=== PATIENT | male | born 1985 | race Two or more races ===

== ENCOUNTER 2017-03-02 20:58 | Inpatient (IN) | payer OTHER ==
[~2017-03-02] VITALS: Ht 180.3 cm; Wt 70.1 kg
[2017-03-02 22:55] VITALS: BP 126/79; PULSE 60; RESP 16; TEMP 97.3; O2SAT 97
[2017-03-02] MEDS ORDERED: LORazepam 2 MG/ML VIAL IM PRN (23:15)
[2017-03-02] MEDS ORDERED: MAGNESIUM HYDROXIDE SUSP 30 ML CUP PO PRN (23:15)
[2017-03-02] MEDS ORDERED: ACETAMINOPHEN 325 MG TAB PO PRN (23:15)
[2017-03-02] MEDS ORDERED: ALUMINUM/MAGNESIUM/SIMETH 30 ML CUP PO PRN (23:15)
[2017-03-02] MEDS: LORazepam 1 MG TAB PO PRN (23:54)
[2017-03-03 05:29] VITALS: BP 98/60; PULSE 74; RESP 16; TEMP 97.8; O2SAT 97
[2017-03-03] MEDS: LORazepam 1 MG TAB PO PRN ×2 (08:45→18:04)
[2017-03-03] MEDS: NICOTINE 21 MG/24 HR PATCH T-DERMAL SCH (08:48)
--- NOTE | 2017-03-03 09:34 | HHI.HP ---
Provisional Diagnosis Admission Date Mar 02, 2017 at 20:58 [place] I. 1. Bipolar disorder, currently depressed, moderate 2. History of methamphetamine abuse [place] II. Deferred [place] V. GAF is 40 presently Certification of Person's Competence To Provide Express and Informed Consent I have personally examined Albert Moses , a person being served at [facility] on, Mar 03, 2017 09:34. Express and informed consent means consent voluntarily given in writing, by a competent person, after sufficient explanation and disclosure of the subject matter involved to enable the person to make a knowing and willful decision without any element of force, fraud, deceit, duress, or other form of constraint or coercion. This person is 18 years of age or older, is not now known to be incompetent to consent to treatment with a guardian advocate, and does not have a health care surrogate or proxy currently making medical treatment decisions. I have found this person to be one of the following: [x] Competent to provide express and informed consent, as defined above, for voluntary admission to this facility and is competent to provide express and informed consent for treatment. He/she has the consistent capacity to make well reasoned, willful, and knowing decisions concerning his or her medical or mental health treatment. The person fully and consistently understands the purpose of the admission for examination/placement and is fully capable of personally exercising all rights assured under [place] Incompetent to provide express and informed consent to voluntary admission, and this is incompetent to provide express and informed consent to treatment. The person must be transferred to involuntary status and a petition for a guardian advocate filed with the Circuit Court. [] Refusing to provide express and informed consent to voluntary admission but is competent to provide express and informed consent for treatment. The person must be discharged or transferred to involuntary status. Form shall be completed within 24 hours of a person's arrival at the receiving facility and filed in the clinical record of each person: 1. Admitted on a voluntary basis 2. Permitted to provide express and informed consent to his/her own treatment 3. Allowed to transfer from involuntary to voluntary status 4. Prior to permitting a person to consent to his or her own treatment after having been previously found incompetent to consent to treatment. History of Present Illness Capacity: Has Capacity HPI Mr. Moses is a 31-year-old male with a reported history of bipolar disorder who presents in transfer from [facility] under a [place] act. Reviewing the documentation from [facility], it appears the patient presented with worsening paranoia and depression. Reviewing our own electronic medical record, I note this is patient's first visit to [facility]. Patient seen and examined. Chart reviewed. Case discussed with nursing staff. On my examination today, the patient reports that he has been feeling increasingly depressed since he stopped taking his lithium about 6 months ago due to not having an outpatient psychiatric provider. He was unsure how to obtain outpatient psychiatric services here as he is originally from [place] he tells me. He says that in the setting of this medication nonadherence he has been experiencing worsening mood, lack of energy and poor motivation, concentration difficulty, occasional hopelessness and worthlessness and poor sleep. He also has been feeling increasingly paranoid, a common feature of his bipolar illness he tells me and says that he feels like people were trying to get into his house, although he did not take any steps to defend himself in this regard. No hypomanic or manic symptoms. He denies suicidal or homicidal ideation, intent or plan and contracts for safety. He denies audiovisual hallucinations and I can elicit no delusional material. The remainder of the psychiatric ROS is negative. Past psychiatric history: The patient reports a history of bipolar illness. He is not currently under the care of a psychiatrist. He has never been psychiatrically admitted before. He initially denies a history of suicide attempts but then admits to a minor overdose on 3 or 4 tablets of medication that did not result in hospitalization several years ago. He reports that he responds well to lithium SR dosed twice daily although he is unsure of the dose. Family history: The patient reports that his brother had bipolar illness and by suicide. His paternal uncle was an alcoholic and also by suicide. His mother and father both struggle with alcohol use issues. Chemical dependency history: The patient admits to a history of methamphetamine abuse, which she reports that he initially started to replace the Adderall that he had been prescribed initially by his psychiatrist. He has been clean for 6 months he tells me. Social history: The patient reports that he lives with his father. He is originally from [place] and his and 3 children reside there. He is high school educated. He has struggled with employment having 3 jobs recently, he says because of his poor concentration. He denies any history. Denies any legal history. Denies any access to guns or firearms. Denies any history of abuse. He is a Caodaism. Past Family Social History Coded Allergies: Amoxicillin (Verified Allergy, Severe, ITCHING, RASH, 03/03/17) Bees (Verified Allergy, Severe, Cardiac Arrest, 03/03/17) Coconut (Verified Allergy, Severe, Swelling, 03/03/17) Penicillin (Verified Allergy, Unknown, Itching,RASH, 03/03/17) Current Medications Medications (Trade) Dose Ordered Sig/Taiwo Route Start Time Stop Time Status Last Admin (Ativan) 1 mg Q6H PRN PO 03/02/17 23:15 03/02/17 23:54 (Ativan Inj) 1 mg Q6H PRN IM 03/02/17 23:15 (Tylenol) 650 mg Q4H PRN PO 03/02/17 23:15 (Milk Of Magnesia Liq) 30 ml DAILY PRN PO 03/02/17 23:15 (Mag-Al Plus Susp Liq) 30 ml Q6H PRN PO 03/02/17 23:15 (Habitrol 21 Mg Patch.24 Hr) 1 patch DAILY T-DERMAL 03/03/17 09:00 03/03/17 08:48 Miscellaneous Information 1 HS T-DERMAL 03/03/17 21:00 Physical Exam Vital Signs Vital Signs Date Time Temp Pulse Resp B/P Pulse Ox O2 Delivery O2 Flow Rate FiO2 03/03/17 05:29 97.8 74 16 98/60 97 Lab Results Laboratories from outside hospital reviewed: CBC unremarkable. CMP reveals mildly elevated creatinine but normal GFR. Urinalysis reviewed. Alcohol level undetectable. I do not see urine toxicology results on file. Mental Status Examination Patient is in hospital gown. He is well groomed. He is maintaining basic hygiene. He is awake and alert and oriented to person, place and approximate date. No evidence of delirium. No motor abnormalities noted. Speech within normal limits for rate, tone and volume. Lying which and fund of knowledge average. Focus and concentration somewhat scattered. Memory grossly intact on clinical exam. Mood depressed and affect restricted and consistent with stated mood. Thought process linear. No loosening of associations. Some paranoia as described above. No other delusions elicited. Denies audiovisual hallucinations. Denies suicidal or homicidal ideation, intent or plan. Insight and judgment are fair. Assessment & Plan Problem List: (1) Bipolar disorder, current episode depressed, moderate ICD Code: F31.32 (2) History of methamphetamine abuse ICD Code: Z87.898 Assessment & Plan This is a 31-year-old male with psychiatric history as detailed above who presents in transfer from outside hospital under a [place] act. On my examination today, the patient reports about 6 months of worsening depression in the setting of medication nonadherence. The patient reports that he responds well to lithium. Given that he is reporting worsening mood in the onset of some paranoia that apparently typically responds well to the lithium, I think it is prudent to admit patient to the inpatient unit for the purpose of restarting medications and for observation. Admitted inpatient. Voluntary status. Check BMP and TSH for lithium therapy. Resume lithium SR 300 mg twice daily with meals with plans to check a level later this week. R/B/A d/w pt. Ativan as needed for anxiety. Vitals every shift. Counselor to see. Disposition planning. Estimated length of stay: 3-5 days. Discharge Planning Home with outpatient psychiatric follow-up once restarted on medications Request HC Surrog/Guard Advoc?: No Eddie Metz MD Mar 03, 2017 09:34
[2017-03-03] MEDS: LITHIUM CARBONATE 300 MG SLOW RELEASE TAB PO SCH ×2 (11:00→18:00)
[2017-03-03 12:01] LABS: HDL CHOLESTEROL 48.7 MG/DL (40.0-60.0); LDL CHOLESTEROL 83 MG/DL (0-99)
[2017-03-03 14:44] LABS: BICARBONATE 26.2 MEQ/L (21.0-32.0); POTASSIUM 3.6 MEQ/L (3.5-5.1)
[2017-03-03 15:50] VITALS: BP 101/56; PULSE 84; RESP 18; TEMP 98.4; O2SAT 99
[2017-03-03 18:00] VITALS: BP 101/56; PULSE 84; RESP 18; TEMP 98.4; O2SAT 99
[2017-03-03 18:39] LABS: HEMOGLOBIN A1a 1.2 %; HEMOGLOBIN A1b 0.8 %; HEMOGLOBIN Ao 85.7 %; HEMOGLOBIN LA1C 1.9 %; HEMOGLOBIN P3 3.5 %
[2017-03-03] MEDS: REMOVE OLD NICOTINE PATCH T-DERMAL SCH (21:00)
[2017-03-04] MEDS: LORazepam 1 MG TAB PO PRN ×2 (03:18→23:15)
[2017-03-04 06:02] VITALS: BP 99/52; PULSE 51; RESP 16; TEMP 97.7; O2SAT 99
[2017-03-04] MEDS: LITHIUM CARBONATE 300 MG SLOW RELEASE TAB PO SCH ×2 (08:56→18:06)
[2017-03-04] MEDS: NICOTINE 21 MG/24 HR PATCH T-DERMAL SCH (08:57)
--- NOTE | 2017-03-04 15:43 | HHI.PYPN ---
Subjective Remarks Patient seen and examined with counselor and nurse. Chart reviewed. Case discussed in treatment team. On my examination today, patient reports mood is improving. Complains of poor sleep, saying that he hears something verena to "a real deep voice" when he is trying to get to sleep at night. This is not a voice, per se, but has the same quality. No command auditory hallucinations reported. No other hallucinatory material. Does have a history of trauma, namely recent suicides a relatives but denies any nightmares, avoidance or hyperarousal. Denies SI or HI. Denies side effects from medications. No physical complaints. Review of Systems Except as stated in HPI: all other systems reviewed are Neg Objective Alert: Yes [place]: Person (oriented 3) Mood: Depressed (mood improving) Affect: Blunted Memory Intact: Comment (intact on clinical exam) Hallucinations: Auditory (see above) Delusions: No Delusion Type: Other (no delusions) Suicidal: Ideation Homicidal: Ideation (denies HI) Insight/Judgment Fair Remarks No motor abnormalities noted. Thought process linear. Grooming and hygiene good. Labs Labs reviewed. GFR somewhat decreased versus outside hospital value. TSH within normal limits. Vitals/IOs Vital Signs Date Time Temp Pulse Resp B/P Pulse Ox O2 Delivery O2 Flow Rate FiO2 03/04/17 06:02 97.7 51 16 99/52 99 Assessment & Plan Problem List: (1) Bipolar disorder, current episode depressed, moderate ICD Code: F31.32 (2) History of methamphetamine abuse ICD Code: Z87.898 Assessment & Plan Continue lithium as ordered. For poor sleep, add Seroquel 50 mg at bedtime. R/ B/A discussed with patient. Trend BMP tomorrow morning to ensure GFR is stable. Continue to monitor on the inpatient unit. Continue other medications and care as ordered. Justification for Cont. Inpt. Medication changes in process. Discharge Planning Anticipate discharge by the end of the week. Request HC Surrog/Guard Advoc?: No Eddie Metz MD Mar 04, 2017 15:42
[2017-03-04 18:00] VITALS: BP 102/62; PULSE 67; RESP 18; TEMP 98.1; O2SAT 100
[2017-03-04] MEDS ORDERED: QUEtiapine FUMARATE 25 MG TAB PO SCH (21:00)
[2017-03-04] MEDS: REMOVE OLD NICOTINE PATCH T-DERMAL SCH (21:00)
[2017-03-05 06:10] VITALS: BP 91/64; PULSE 56; RESP 18; TEMP 97.8; O2SAT 99
[2017-03-05] MEDS: LITHIUM CARBONATE 300 MG SLOW RELEASE TAB PO SCH (09:00)
[2017-03-05] MEDS: NICOTINE 21 MG/24 HR PATCH T-DERMAL SCH (09:08)
[2017-03-05 09:17] LABS: BICARBONATE 27.4 MEQ/L (21.0-32.0); POTASSIUM 3.8 MEQ/L (3.5-5.1)
[2017-03-05] MEDS ORDERED: QUET1TAB7 PO (10:36)
[2017-03-05] MEDS ORDERED: LITH300T PO (10:36)
--- NOTE | 2017-03-05 10:36 | HHI.DS ---
Psychiatry Discharge Summary Inpatient Psychiatric care?: Yes Advance Directive: No Reason Not Provided: DOES NOT HAVE Mental Health AdvanceDirective: No Health Care Proxy: No Admission Admission Date Mar 02, 2017 at 20:58 Admission Diagnosis: (1) Bipolar disorder, current episode depressed, moderate ICD Code: F31.32 (2) History of methamphetamine abuse ICD Code: Z87.898 Brief History Mr. Moses is a 31-year-old male with a reported history of bipolar disorder who presents in transfer from [facility] under a [place] act. Reviewing the documentation from [facility], it appears the patient presented with worsening paranoia and depression. Reviewing our own electronic medical record, I note this is patient's first visit to [facility]. Patient seen and examined. Chart reviewed. Case discussed with nursing staff. On my examination today, the patient reports that he has been feeling increasingly depressed since he stopped taking his lithium about 6 months ago due to not having an outpatient psychiatric provider. He was unsure how to obtain outpatient psychiatric services here as he is originally from [place] he tells me. He says that in the setting of this medication nonadherence he has been experiencing worsening mood, lack of energy and poor motivation, concentration difficulty, occasional hopelessness and worthlessness and poor sleep. He also has been feeling increasingly paranoid, a common feature of his bipolar illness he tells me and says that he feels like people were trying to get into his house, although he did not take any steps to defend himself in this regard. No hypomanic or manic symptoms. He denies suicidal or homicidal ideation, intent or plan and contracts for safety. He denies audiovisual hallucinations and I can elicit no delusional material. The remainder of the psychiatric ROS is negative. Past psychiatric history: The patient reports a history of bipolar illness. He is not currently under the care of a psychiatrist. He has never been psychiatrically admitted before. He initially denies a history of suicide attempts but then admits to a minor overdose on 3 or 4 tablets of medication that did not result in hospitalization several years ago. He reports that he responds well to lithium SR dosed twice daily although he is unsure of the dose. Family history: The patient reports that his brother had bipolar illness and by suicide. His paternal uncle was an alcoholic and also by suicide. His mother and father both struggle with alcohol use issues. Chemical dependency history: The patient admits to a history of methamphetamine abuse, which she reports that he initially started to replace the Adderall that he had been prescribed initially by his psychiatrist. He has been clean for 6 months he tells me. Social history: The patient reports that he lives with his father. He is originally from [place] and his and 3 children reside there. He is high school educated. He has struggled with employment having 3 jobs recently, he says because of his poor concentration. He denies any history. Denies any legal history. Denies any access to guns or firearms. Denies any history of abuse. He is a Mandaeism. Tobacco Use In Past 30 Days: 5 or More Cigarettes/Day Alcohol Use: Monthly or Less Hospital Course Patient was admitted to a locked, inpatient psychiatric unit. Appropriate precautions were in place throughout patient's hospital stay. Patient was seen and examined daily on the unit by psychiatry and also visited by counselor. Psychotropic medications were adjusted. Patient tolerated medication changes well without side effects. Patient had significant improvement in presenting psychiatric symptoms during his hospital stay. There was no evidence of any suicidality or homicidality on the inpatient unit. The patient remained in good behavioral control and was medication compliant. On the day of discharge: Patient seen and examined with counselor and nurse. Chart reviewed. Case discussed with nursing staff. The patient has been no behavioral problem overnight. On my examination today, the patient is requesting discharge from the inpatient psychiatric unit. He says that his mood is "a lot better" than at admission, and he denies any suicidal or homicidal ideation, intent or plan on direct questioning. He contracts for safety. Sleep is improved. He denies audiovisual hallucinations. I can elicit no delusional material. He denies side effects from medications. He has no physical complaints. Weighing the acute, chronic, and protective factors and based on the available evidence, I global cto to reasonable degree of medical certainty that the patient is at low imminent risk of harm to self or others from a mental illness as defined under the [place] act and his level of function is adequate for outpatient care. The patient does not meet criteria for involuntary psychiatric hospitalization at this time. I have recommended that he remain on the unit at least for 1 additional day to allow us to draw a lithium level in the morning, but he has declined. Given that he is requesting discharge from the unit today and given that he does not meet criteria for involuntary hospitalization, I must arrange for his discharge today with psychiatric follow-up as arranged by counselor. Patient is also to follow-up with primary care. I have instructed the patient to obtain a lithium level on an outpatient basis and have provided an order for this. I have counseled the patient to abstain from substances of abuse. I have counseled the patient regarding warning signs for need to return to the psychiatric emergency room as part of a general safety plan. Results Blood Pressure 91 / 64 Vital Signs Date Time Temp Pulse Resp B/P Pulse Ox O2 Delivery O2 Flow Rate FiO2 03/05/17 06:10 97.8 56 18 91/64 99 Laboratory Tests Test 03/03/17 03/05/17 10:04 07:03 Estimat Glomerular Filtration 66 ML/MIN (>89) 85 ML/MIN (>89) Rate Triglycerides Level 240 MG/DL (42-150) Chloride Level 108 MEQ/L (98-107) Laboratory Results Test 03/03/17 10:04 Hemoglobin A1c 5.3 % (4.3-6.0) Triglycerides Level 240 MG/DL (42-150) Cholesterol Level 180 MG/DL (120-200) LDL Cholesterol 83 MG/DL (0-99) HDL Cholesterol 48.7 MG/DL (40.0-60.0) Summary of Procedures None done Imaging None done Pending results at discharge: No Medications # of Antipsychotic meds at D/C: 1 Approp Antipsych med options 1 - Minimum of three failed multiple trials of monotherapy. 2 - Documented plan to taper to monotherapy due to previous use of multiple meds OR cross-taper in progress at D/C. 3 - Documentation of augmentation of Clozapine. 4 - Justification other than those listed in allowable values 1-3, document here : Discharge Discharge Date: Mar 05, 2017 Discharge Diagnosis: (1) Bipolar disorder, in partial remission, most recent episode depressed Diagnosis: Principal ICD Code: F31.75 (2) History of methamphetamine abuse Diagnosis: Secondary ICD Code: Z87.898 Mental Status Exam at Disch Patient is casually dressed. He is well groomed. He is awake and alert and oriented to person and hospital at least. No evidence of delirium. No motor abnormalities. Speech is within normal limits for rate, tone, volume. Mood is much improved versus admission. Affect is full and reactive. Thought processes linear. No delusions elicited. Denies audiovisual hallucinations and does not appear internally stimulated. Denies suicidal or homicidal ideation, intent, or plan. Insight and judgment seem fair. Pt Condition on Discharge: Stable Discharge Disposition: Discharge Home Discharge Instructions Diet Instructions: As Tolerated, No Restrictions Activities you can perform: Weight Bearing as [place] Scheduled Appointment: as per counselor's notes New Orders: LITHIUM (LI) - 2-3 Days New Medications: Onley Carbonate ER (Onley Carbonate ER) 300 Mg Tab 300 MG PO BIDPC Mental Health Days 15 Ref 1 TAB Quetiapine (Quetiapine) 25 Mg Tab 50 MG PO HS Mental Health Days 15 Ref 1 TAB Discharge Time <= 30 minutes Discharge/Advance Care Plan Health Problems: (1) Bipolar disorder, current episode depressed, moderate (2) History of methamphetamine abuse Goals to promote your health * To prevent worsening of your condition and complications * To maintain your health at the optimal level Directions to meet your goals Take your medications as prescribed Follow your dietary instruction Follow activity as directed Keep your appointments as scheduled Take your immunizations and boosters as scheduled If your symptoms worsen call your PCP, if no PCP go to Urgent Care Center or Emergency Room For 03/03 questions related to your inpatient stay or results of tests pending at discharge, please contact Dr. Eddie Metz at Smoking is Dangerous to Your Health. Avoid second hand smoking Eddie Metz MD Mar 05, 2017 10:36
== END 2017-03-05 15:30 | disposition home or self-care (01) | DRG 885 ==
LOC: H260 20:58
PROVIDERS: ADMIT Psychiatry & Neurology Psychiatry; ATTEND Psychiatry & Neurology Psychiatry
DX: F31.32 Bipolar disorder, current episode depressed, moderate (principal); Z91.14 Patient's other noncompliance with medication regimen; F15.10 Other stimulant abuse, uncomplicated
CPT/HCPCS: 80048; 80061; 83036; 84443